=== PATIENT | male | born 1985 | race African-American/Black ===

== ENCOUNTER 2017-03-12 01:12 | Emergency (ER) | payer MEDICAID ==
[~2017-03-12] VITALS: Ht 177.8 cm; Wt 146.0 kg
[~2017-03-12 01:12] MED LIST: NO MEDS
[2017-03-12] MEDS ORDERED: SODIUM CHLORIDE 0.9% 1,000 ML IV ONE (02:43)
[2017-03-12] MEDS ORDERED: KETOROLAC 30MG/ML VIAL IV STA (02:43)
[2017-03-12] MEDS ORDERED: ONDANSETRON HCL 4MG/2ML VIAL IV STA (02:43)
[2017-03-12 03:03] LABS: BASOPHILS % 0.4 % (0.0-2.0); HEMATOCRIT. 41.8 % (42.0-52.0); HEMOGLOBIN. 13.8 g/dL (14.0-18.0); LYMPHOCYTES % 13.1 % (20.0-50.0); MEAN CORPUSCULAR HEMOGLOBIN 26.8 pg (28.0-32.0); MEAN CORPUSCULAR HGB CONC 32.9 g/dL (31.0-37.0); MEAN CORPUSCULAR VOLUME 81.4 fL (80.0-94.0); MEAN PLATELET VOLUME 8.7 fl (7.4-10.4); MONOCYTES % 10.8 % (2.0-8.0); NEUTROPHILS % 75.7 % (40.0-76.0); PLATELET 243 x1000/uL (130-400); RED BLOOD CELL COUNT 5.14 mill/uL (4.7-6.1); RED CELL DISTRIBUTION WIDTH 14.6 % (11.6-14.6); WHITE BLOOD COUNT 7.3 x1000/uL (4.5-11.0)
[2017-03-12 03:10] LABS: CHLORIDE 103 mEq/L (98-107); INDEX HEMOLYSI 1 (1-3); INDEX ICTERIC 1 (1-4); INDEX LIPEMIC 1 (1-3)
[2017-03-12 03:12] LABS: INR 1.2; PROTHROMBIN TIME 12.4 sec
[2017-03-12 03:18] LABS: ALANINE AMINOTRANSFERASE 29 IU/L (13-61); ALBUMIN 3.7 g/dL (3.4-5.0); ANION GAP 12; CALCIUM 8.6 mg/dL (8.5-10.1); CARBON DIOXIDE 27 mEq/L (21-32); UREA NITROGEN BLOOD 9 mg/dL (7-21); eGFR > 60 mL/min (>60)
[2017-03-12 04:54] VITALS: BP 138/72
== END 2017-03-12 04:59 | disposition home or self-care (01) ==
LOC: ER 01:12
DX: R51 Headache (principal); R10.13 Epigastric pain; R11.2 Nausea with vomiting, unspecified; F12.10 Cannabis abuse, uncomplicated
CPT/HCPCS: 36415; 70450; 80053; 85025; 85610; 96361; 96374; 96375; 99285; J1885; J2405; J7030; Z7610

== ENCOUNTER 2018-03-18 11:56 | Emergency (ER) | payer MEDICAID ==
[~2018-03-18] VITALS: Ht 172.7 cm; Wt 158.0 kg
[2018-03-18] MEDS ORDERED: TETANUS, DIPHTHERIA, PERTUSSIS VAC/PF 0.5ML (>7YR OLD) IM ONE (12:45)
[2018-03-18 13:08] LABS: BASOPHILS % 0.6 % (0.0-2.0); EOSINOPHILS % 4.7 % (0.0-5.0); HEMATOCRIT. 43.8 % (42.0-52.0); HEMOGLOBIN. 14.7 g/dL (14.0-18.0); LYMPHOCYTES % 33.1 % (20.0-50.0); MEAN CORPUSCULAR HEMOGLOBIN 27.4 pg (28.0-32.0); MEAN CORPUSCULAR VOLUME 81.8 fL (80.0-94.0); MEAN PLATELET VOLUME 8.5 fl (7.4-10.4); MONOCYTES % 8.6 % (2.0-8.0); PLATELET 341 x1000/uL (130-400); RED BLOOD CELL COUNT 5.36 mill/uL (4.7-6.1)
[2018-03-18 13:13] LABS: CHLORIDE 105 mEq/L (98-107)
[2018-03-18 13:19] LABS: PHOSPHORUS 3.3 mg/dL (2.5-4.9)
[2018-03-18 14:20] VITALS: BP 147/83
== END 2018-03-18 14:27 | disposition home or self-care (01) ==
LOC: ER 12:46
DX: S51.832A Puncture wound without foreign body of left forearm, initial encounter (principal); F12.10 Cannabis abuse, uncomplicated; Z79.899 Other long term (current) drug therapy; W26.8XXA Contact with other sharp object(s), not elsewhere classified, initial encounter; Y93.89 Activity, other specified; Y92.89 Other specified places as the place of occurrence of the external cause; Y99.8 Other external cause status
CPT/HCPCS: 36415; 80053; 82962; 83735; 84100; 85025; 90471; 90715; 93005; 99285; Z7610

== ENCOUNTER 2018-12-16 21:31 | Emergency (ER) | payer MEDICAID, OTHER ==
[~2018-12-16] VITALS: Ht 172.7 cm; Wt 161.0 kg
[2018-12-17 03:01] LABS: BASOPHILS % 0.7 % (0.0-2.0); EOSINOPHILS % 7.1 % (0.0-5.0); HEMATOCRIT. 42.6 % (42.0-52.0); LYMPHOCYTES % 38.5 % (20.0-50.0); MEAN CORPUSCULAR VOLUME 82.1 fL (80.0-94.0); MEAN PLATELET VOLUME 8.6 fl (7.4-10.4); MONOCYTES % 6.1 % (2.0-8.0); NEUTROPHILS % 47.6 % (40.0-76.0); PLATELET 296 x1000/uL (130-400); RED BLOOD CELL COUNT 5.19 mill/uL (4.7-6.1); RED CELL DISTRIBUTION WIDTH 14.1 % (11.6-14.6)
[2018-12-17 03:03] LABS: CHLORIDE 107 mEq/L (98-107)
[2018-12-17] MEDS ORDERED: AMLODIPINE 2.5MG TABLET PO SCH (03:34)
[2018-12-17 06:28] VITALS: BP 146/87
== END 2018-12-17 06:30 | disposition home or self-care (01) ==
LOC: ER 21:31
DX: R07.89 Other chest pain (principal); I10 Essential (primary) hypertension; F12.10 Cannabis abuse, uncomplicated; F17.200 Nicotine dependence, unspecified, uncomplicated
CPT/HCPCS: 36415; 71045; 83036; 93005; 99284

== ENCOUNTER 2019-06-30 14:01 | Emergency (ER) | payer MEDICAID, OTHER ==
[~2019-06-30] VITALS: Ht 172.7 cm; Wt 155.0 kg
[2019-06-30 17:15] VITALS: BP 156/90
== END 2019-06-30 17:16 | disposition home or self-care (01) ==
LOC: ER 14:01
DX: M79.672 Pain in left foot (principal); I10 Essential (primary) hypertension; F12.10 Cannabis abuse, uncomplicated; Z87.828 Personal history of other (healed) physical injury and trauma; Z98.890 Other specified postprocedural states
CPT/HCPCS: 73610; 73630; 99283

== ENCOUNTER 2025-05-24 02:23 | Inpatient (IN) | payer MEDICAID ==
[~2025-05-24] VITALS: Ht 175.3 cm; Wt 138.8 kg
[~2025-05-24 02:23] MED LIST changes: +AMLO10TA80 PO; +ASPI-1406 PO; +ATOR-2 MT; +CLON0.2T PO; +COR12 PO; +HYDR100T31 PO; +ISOS30TA91 PO
[2025-05-24] MEDS ORDERED: AMLODIPINE 10MG TABLET PO ONE (03:00)
[2025-05-24] MEDS: HYDRALAZINE 20MG/ML VIAL IV ONE (04:12)
[2025-05-24] MEDS: ACETAMINOPHEN 325MG TABLET PO ONE (04:14)
[2025-05-24 04:58] LABS: BASOPHILS % 0.8 % (0.0-2.0); EOSINOPHILS % 3.3 % (0.0-5.0); HEMATOCRIT. 38.2 % (42.0-52.0); HEMOGLOBIN. 12.6 g/dL (14.0-18.0); LYMPHOCYTES % 29.2 % (20.0-50.0); MEAN PLATELET VOLUME 8.5 fl (7.4-10.4); MONOCYTES % 8.5 % (2.0-8.0); NEUTROPHILS % 58.2 % (40.0-76.0); PLATELET 339 x1000/uL (130-400); RED BLOOD CELL COUNT 4.76 mill/uL (4.7-6.1); RED CELL DISTRIBUTION WIDTH 15.0 % (11.6-14.6)
[2025-05-24 05:06] LABS: INR 1.0
[2025-05-24] MEDS: ISOSORBIDE DINITRATE 20MG TABLET PO SCH (05:07)
[2025-05-24] MEDS: AMLODIPINE 10MG TABLET PO NR (05:07)
[2025-05-24 05:08] LABS: CREATININE 1.5 mg/dL (0.6-1.3); UREA NITROGEN BLOOD 13 mg/dL (9-23)
[2025-05-24 05:09] LABS: ETHANOL BLOOD < 10 mg/dL (<10)
[2025-05-24 05:10] LABS: ASPARTATE AMINOTRANSFERASE 25 IU/L (<34); BILIRUBIN DIRECT 0.1 mg/dL (<=3.0); BILIRUBIN TOTAL 0.3 mg/dL (0.1-1.0); PROTEIN TOTAL 7.0 g/dL (6.0-8.3)
[2025-05-24 05:21] LABS: TROPONIN I HIGH SENSITIVITY 368 ng/L (3.0-53)
[2025-05-24] MEDS: POTASSIUM CHLORIDE 20MEQ/PACKET PO NR (05:30)
[2025-05-24] MEDS: ASPIRIN 325MG EC TABLET PO NR (06:36)
[2025-05-24] MEDS: LABETALOL 5MG/ML 4ML INJ IV NR (06:36)
[2025-05-24 08:24] VITALS: BP 135/87; PULSE 67; RESP 16; TEMP 36.3068
[2025-05-24 08:30] VITALS: BP 135/87; PULSE 67; RESP 16; TEMP 36.3; O2SAT 98
[2025-05-24] MEDS ORDERED: ONDANSETRON HCL 4MG/2ML INJ IV PRN ×2 (09:30→10:00)
[2025-05-24] MEDS: POTASSIUM CHLORIDE 20MEQ TABLET SR PO NR (09:51)
[2025-05-24] MEDS: PANTOPRAZOLE SODIUM 40 MG/VIAL IV SCH (09:51)
[2025-05-24] MEDS ORDERED: ACETAMINOPHEN 325MG TABLET PO PRN (10:00)
[2025-05-24 12:00] VITALS: BP 136/94; PULSE 74; RESP 16; TEMP 36.6; O2SAT 100
[2025-05-24] MEDS: HYDRALAZINE HCL 100MG TABLET PO SCH (13:39)
[2025-05-24] MEDS: CLONIDINE 0.2MG TABLET PO SCH (13:39)
[2025-05-24] MEDS: ISOSORBIDE MONONITRATE 30MG TABLET SR 24HR PO SCH (13:39)
[2025-05-24 16:00] VITALS: BP 147/96; PULSE 66; RESP 20; TEMP 36.2; O2SAT 96
[2025-05-24] MEDS ORDERED: CARVEDILOL 12.5MG TABLET PO SCH (21:00)
[2025-05-24] MEDS: ATORVASTATIN CALCIUM 40MG TABLET PO SCH (21:19)
[2025-05-24] MEDS: CARVEDILOL 12.5MG TABLET PO SCH (21:20)
[2025-05-25] VITALS (9 sets, daily range): BP systolic 104–190; BP diastolic 50–108; PULSE 56–67; RESP 18–20; TEMP 36.6–37.3; O2SAT 96–98
[2025-05-25] MEDS: ASPIRIN 81MG TABLET PO SCH (08:52)
[2025-05-25] MEDS: AMLODIPINE 10MG TABLET PO SCH (08:53)
[2025-05-25] MEDS: PANTOPRAZOLE SODIUM 40 MG/VIAL IV SCH (08:54)
[2025-05-25] MEDS ORDERED: ASPIRIN 81MG EC TABLET PO SCH (09:00)
[2025-05-25] MEDS ORDERED: AMLODIPINE 10MG TABLET PO SCH (09:00)
[2025-05-25] MEDS ORDERED: ISOSORBIDE MONONITRATE 30MG TABLET SR 24HR PO SCH (09:00)
[2025-05-25 10:00] LABS: BASOPHILS % 0.6 % (0.0-2.0); EOSINOPHILS % 5.0 % (0.0-5.0); HEMATOCRIT. 39.1 % (42.0-52.0); HEMOGLOBIN. 13.0 g/dL (14.0-18.0); LYMPHOCYTES % 38.8 % (20.0-50.0); MEAN PLATELET VOLUME 8.4 fl (7.4-10.4); MONOCYTES % 9.5 % (2.0-8.0); NEUTROPHILS % 46.1 % (40.0-76.0); PLATELET 313 x1000/uL (130-400); RED BLOOD CELL COUNT 4.87 mill/uL (4.7-6.1); RED CELL DISTRIBUTION WIDTH 14.6 % (11.6-14.6)
[2025-05-25 10:06] LABS: CREATININE 1.5 mg/dL (0.6-1.3); UREA NITROGEN BLOOD 13 mg/dL (9-23)
[2025-05-25] MEDS ORDERED: ATOR-2 MT ×2 (12:19→16:39)
[2025-05-25] MEDS ORDERED: COR12 PO (12:19)
[2025-05-25] MEDS ORDERED: HYDR100T31 PO (12:19)
[2025-05-25] MEDS ORDERED: ASPI-1406 PO (12:19)
[2025-05-25] MEDS ORDERED: AMLO10TA80 PO (12:19)
[2025-05-25] MEDS ORDERED: SPIR50TA5 MT ×2 (12:20→16:39)
[2025-05-25] MEDS ORDERED: HYDR100T11 MT (16:39)
[2025-05-25] MEDS ORDERED: ASPI-1497 MT (16:39)
[2025-05-25] MEDS ORDERED: AMLO10TA80 MT (16:39)
[2025-05-25] MEDS ORDERED: CARV12.545 MT (16:39)
[2025-05-25] MEDS: HYDRALAZINE 20MG/ML VIAL IV SCH (17:11)
[2025-05-25] MEDS: ACETAMINOPHEN 325MG TABLET PO PRN (20:25)
[2025-05-26] MEDS ORDERED: SPIRONOLACTONE 50MG TABLET PO SCH (15:00)
== END 2025-05-25 21:05 | disposition home or self-care (01) | DRG 199 ==
LOC: ER 02:23 → 7WST 05:41 → EDBEDREQ 05:54 → EDBEDREQTM 05:54 → ENRESERV 06:09
PROVIDERS: ADMIT Internal Medicine; ATTEND Internal Medicine
DX: I16.9 Hypertensive crisis, unspecified (principal); E66.01 Morbid (severe) obesity due to excess calories; E87.6 Hypokalemia; I10 Essential (primary) hypertension; F12.90 Cannabis use, unspecified, uncomplicated; Z68.42 Body mass index [BMI] 45.0-49.9, adult; Z91.148 Patient's other noncompliance with medication regimen for other reason; Z88.8 Allergy status to other drugs, medicaments and biological substances
CPT/HCPCS: 36415; 71045; 80048; 80076; 80320; 83880; 84484; 85025; 93005; 99291; J0360; J2470; J3490; G0480